=== PATIENT | female | born 1945 | race Hispanic/Latino ===

== ENCOUNTER → 2020-02-12 | Outpatient (CLI) | payer OTHER | END | disposition home or self-care (01) | LOC: RAH 10:47 | PROVIDERS: ATTEND Internal Medicine Gastroenterology | DX: R10.10 Upper abdominal pain, unspecified (principal); R14.0 Abdominal distension (gaseous); R68.81 Early satiety | CPT/HCPCS: 78264; A9541 ==

== ENCOUNTER 2022-06-05 13:27 | Emergency (ER) | payer OTHER ==
[~2022-06-05] VITALS: Ht 154.9 cm; Wt 80.3 kg
[2022-06-05 13:49] LABS: BASOPHILS % (AUTO) 0.6 % (0.0-5.0); EOSINOPHILS % (AUTO) 3.2 % (0.0-8.0); HEMATOCRIT 39.3 % (36-48); LYMPHOCYTES % (AUTO) 37.6 % (21.0-51.0); MEAN CORPUSCULAR HEMOGLOBIN 32.4 pg (27.0-33.0); MEAN CORPUSCULAR HGB CONC 35.9 g/dL (32.0-36.0); MEAN CORPUSCULAR VOLUME 90.3 fL (79-99); MONOCYTES % (AUTO) 9.5 % (3.0-13.0); NEUTROPHILS % (AUTO) 48.8 % (40.0-77.0); PLATELET COUNT (AUTO) 338 K/uL (130-400); RED BLOOD CELL COUNT(AUTO) 4.35 MIL/uL (4.00-5.50); RED CELL DISTRIBUTION WIDTH 14.7 % (11.0-15.5); WHITE BLOOD COUNT (AUTO) 8.9 K/uL (4.8-10.8)
[2022-06-05 13:59] LABS: CREATININE 0.8 mg/dL (0.5-1.5); INR 0.95 (0.85-1.15); POTASSIUM 3.7 mmol/L (3.5-5.1); PROTHROMBIN TIME 10.4 SEC (9.6-11.6)
[2022-06-05 14:04] LABS: ALBUMIN 4.3 g/dL (3.5-5.0); TOTAL PROTEIN, SERUM 7.9 g/dL (6.0-8.3)
[2022-06-05 14:18] LABS: B-TYPE NATRIURETIC PEPTIDE 75 pg/mL (0-100)
[2022-06-05] MEDS ORDERED: HYDR50CA PO (15:10)
[2022-06-05] MEDS ORDERED: LISI10TA24 PO (15:10)
[2022-06-05] MEDS ORDERED: SIMV40TA59 PO (15:10)
[2022-06-05] MEDS ORDERED: LEVO125C4 PO (15:10)
[2022-06-05] MEDS ORDERED: AMLO5TAB5 PO (15:10)
[2022-06-05] MEDS ORDERED: ASPIRIN 325MG EC TAB PO ONE (16:00)
[2022-06-05] MEDS ORDERED: IOHEXOL 350 MG/ML 100ML INFUS..BTL IV ONE (16:28)
[2022-06-05 17:23] LABS: APPEARANCE,URINE CLEAR (CLEAR); BILIRUBIN,URINE NEGATIVE (NEGATIVE); COLOR,URINE LIGHT-YELLOW (YELLOW); GLUCOSE, URINE (UA) NEGATIVE (NEGATIVE); KETONES,URINE NEGATIVE (NEGATIVE); LEUKOCYTE ESTERASE ,URINE 25 Leu/uL (NEGATIVE); NITRATE,URINE NEGATIVE (NEGATIVE); OCCULT BLOOD,URINE NEGATIVE (NEGATIVE); PROTEIN,URINE NEGATIVE (NEGATIVE); UROBILINOGEN,URINE 0.2 mg/dL (0.2-1.0)
[2022-06-05 17:29] LABS: BACTERIA,URINE RARE /HPF (None Seen); MUCUS,URINE RARE LPF (None Seen); SQUAMOUS EPITHELIAL CELL,UR RARE /HPF (0-2)
[2022-06-05 19:26] VITALS: BP 132/84
[2022-06-05] MEDS ORDERED: DICL50TA9 PO (19:42)
[2022-06-05] MEDS ORDERED: MACR100 PO (19:59)
[2022-06-05] MEDS ORDERED: KETOROLAC 15MG/ML VIAL (15MG/ML) IV ONE (20:00)
== END 2022-06-05 20:11 | disposition home or self-care (01) ==
LOC: EDH 13:27
DX: H53.8 Other visual disturbances (principal); R51.9 Headache, unspecified; E11.9 Type 2 diabetes mellitus without complications; E78.00 Pure hypercholesterolemia, unspecified; I10 Essential (primary) hypertension; Z79.01 Long term (current) use of anticoagulants; Z79.82 Long term (current) use of aspirin; Z79.899 Other long term (current) drug therapy
CPT/HCPCS: 99285; 70496; 70551; 96374; 71045; 82550; 83721; 84484; 80053; 83880; 85025; 85610; 85730; 87088; 82948; 81001; 36415; 70498; 93005; 70450; J1885; Q9967

== ENCOUNTER 2023-02-14 07:56 | Emergency (ER) | payer OTHER ==
[~2023-02-14] VITALS: Ht 154.9 cm; Wt 80.3 kg
[~2023-02-14 07:56] MED LIST: AMLO5TAB5 PO; DICL50TA9 PO; HYDR50CA PO; LEVO125C4 PO; LISI10TA24 PO; MACR100 PO; SIMV40TA59 PO
[2023-02-14 08:29] LABS: BASOPHILS % (AUTO) 0.3 % (0.0-5.0); EOSINOPHILS % (AUTO) 1.1 % (0.0-8.0); HEMATOCRIT 42.4 % (36-48); LYMPHOCYTES % (AUTO) 19.2 % (21.0-51.0); MEAN CORPUSCULAR VOLUME 91.2 fL (79-99); MONOCYTES % (AUTO) 7.7 % (3.0-13.0); NEUTROPHILS % (AUTO) 71.3 % (40.0-77.0); PLATELET COUNT (AUTO) 391 K/uL (130-400); RED BLOOD CELL COUNT(AUTO) 4.65 MIL/uL (4.00-5.50); RED CELL DISTRIBUTION WIDTH 14.4 % (11.0-15.5); WHITE BLOOD COUNT (AUTO) 15.9 K/uL (4.8-10.8)
[2023-02-14 08:36] LABS: CREATININE 0.7 mg/dL (0.5-1.5); POTASSIUM 3.3 mmol/L (3.5-5.1)
[2023-02-14 08:40] LABS: TOTAL PROTEIN, SERUM 7.9 g/dL (6.0-8.3)
[2023-02-14] MEDS ORDERED: KETOROLAC 15MG/ML VIAL (15MG/ML) IV ONE (09:00)
[2023-02-14 09:13] LABS: APPEARANCE,URINE CLEAR (CLEAR); BILIRUBIN,URINE NEGATIVE (NEGATIVE); COLOR,URINE YELLOW (YELLOW); GLUCOSE, URINE (UA) NEGATIVE (NEGATIVE); KETONES,URINE NEGATIVE (NEGATIVE); LEUKOCYTE ESTERASE ,URINE 25 Leu/uL (NEGATIVE); NITRATE,URINE NEGATIVE (NEGATIVE); OCCULT BLOOD,URINE NEGATIVE (NEGATIVE); PROTEIN,URINE 30 mg/dL (NEGATIVE)
[2023-02-14 09:16] LABS: BACTERIA,URINE RARE /HPF (None Seen); MUCUS,URINE RARE LPF (None Seen); SQUAMOUS EPITHELIAL CELL,UR FEW /HPF (0-2)
[2023-02-14] MEDS ORDERED: IOHEXOL-350 75 ML VIAL IV ONE (09:36)
[2023-02-14] MEDS ORDERED: AMOX1TAB16 PO (12:23)
[2023-02-14] MEDS ORDERED: CEFTRIAXONE 1G VIAL IVPB ONE (12:30)
[2023-02-14 14:12] VITALS: BP 134/83
== END 2023-02-14 14:14 | disposition home or self-care (01) ==
LOC: EDH 07:56
DX: K52.9 Noninfective gastroenteritis and colitis, unspecified (principal); I10 Essential (primary) hypertension; E78.00 Pure hypercholesterolemia, unspecified; J45.909 Unspecified asthma, uncomplicated; Z79.899 Other long term (current) drug therapy; Z90.49 Acquired absence of other specified parts of digestive tract; Z90.89 Acquired absence of other organs; Z98.890 Other specified postprocedural states
CPT/HCPCS: 99285; 74177; 96374; 96375; 80053; 85025; 86850; 86900; 86901; 87088; 81001; 36415; J0696; J1885; Q9967

== ENCOUNTER 2024-12-05 22:31 | Emergency (ER) | payer OTHER ==
[~2024-12-05] VITALS: Ht 154.9 cm; Wt 77.1 kg
[~2024-12-05 22:31] MED LIST changes: +AMOX1TAB16 PO
[2024-12-06] MEDS: ketOROlac 15MG/ML VIAL (15MG/ML) IM ONE
[2024-12-06] MEDS: HYDROcodone/APAP 5/325 1 TAB TABLET PO ONE (00:01)
--- NOTE | 2024-12-06 00:02 | HMCIMG ---
US VENOUS DOPPLER UNILATERAL HISTORY: Right lower extremity pain COMPARISON: None TECHNIQUE: Right lower extremity venous Doppler ultrasound study was performed. FINDINGS: The right common femoral, femoral, popliteal, and posterior tibial veins are visualized. Normal flow with augmentation and compressibilities are demonstrated. Right greater saphenous vein is patent. IMPRESSION: 1. No evidence of deep venous thrombosis is seen.
--- NOTE | 2024-12-06 00:05 | ERN ---
General Chief Complaint: Knee Injury/Swelling Stated Complaint: RIGHT KNEE PAIN Time Seen by MD: 22:38 Time Seen by Midlevel: 22:38 Source: patient History of Present Illness Initial Comments The patient is a 79-year-old female presenting to the emergency department for evaluation of right knee pain. The patient states the pain started at 3:00 p.m. today. Denies any direct injury but does state she felt an excruciating pain after getting up from her chair. She was concerned she may have a blood clot so she decided to call EMS and report to the ER for further evaluation. Allergies: Coded Allergies: No Known Allergies (Unverified Allergy, Unknown, 06/05/22) Home Meds Active Scripts Amoxicillin/Potassium Clav (Amox Tr-K Clv 875-125 mg Tab) 1 Each Tablet, 1 EACH PO BID for 7 Days, #14 TAB Prov:QUE HATFIELD MD 02/14/23 Nitrofurantoin/Nitrofuran Mac (Macrobid) 100 Mg Cap, 1 CAP PO BID for 7 Days, #14 CAP 0 Refills Prov:CHRIS POP MD 06/05/22 Diclofenac Sodium (Diclofenac Sodium) 50 Mg Tablet.dr, 50 MG PO TIDP PRN for HEADACHE, #12 TAB 0 Refills Prov:CHRIS POP MD 06/05/22 Reported Medications Hydroxyzine Pamoate (Vistaril) 50 Mg Capsule, 50 MG PO DAILY, CAP 06/05/22 Levothyroxine Sodium (Levothyroxine) 125 Mcg Capsule, 125 MCG PO HS, CAP 06/05/22 Simvastatin (ZOCOR) 40 Mg Tablet, 40 MG PO HS, TAB 06/05/22 Amlodipine Besylate (Norvasc) 5 Mg Tablet, 5 MG PO DAILY, TAB 06/05/22 Lisinopril (Lisinopril) 10 Mg Tablet, 10 MG PO DAILY, TAB 06/05/22 Past Medical History Past Medical History: Arthritis, Asthma, Depression, Diabetes-Type II, High Cholesterol, Hypertension Past Surgical History: Tonsillectomy, Cholecystectomy, Family History Family History: CAD, HTN Social History Social History: Negative, Lives with family ROS Dictation CONSTITUTIONAL: Negative except for HPI HEAD/FACE: Negative except for HPI EENT: Negative except for HPI RESPIRATORY: Negative except for HPI GASTROINTESTINAL/ABDOMINAL: Negative except for HPI GENITOURINARY: Negative except for HPI MUSCULOSKELETAL: Negative except for HPI INTEGUMENTARY: Negative except for HPI NEUROLOGICAL/PSYCH: Negative except for HPI HEMATOLOGIC/LYMPHATIC: Negative except for HPI All Systems Negative, Except as noted above. 13 point review of systems assessed and all negative except for above. Physical Exam Physical Exam Dictation Vital Signs reviewed General Appearance: Alert, oriented x 3, no acute distress, well developed, nourished. Head and Face: non-traumatic. Eyes: PERRL, pink conjunctivas, eyelid no trauma, anterior chamber with arcus senilis. Ears: Pinnas intact and no signs of trauma or erythema ear canals clear and no discharge TM no erythema Nose: No discharge, no bleeding. Oropharynx: Mouth normal, tongue pink, pharynx clear,no erythema, tonsils no exudates, no abscesses noted, mucous membrane moist Neck: Supple, non-tender, no thyromegaly, no masses, no JVD, no bruits Breast:Deferred Chest:No tenderness, no crepitus, no paradoxical movement, no retractions Lungs:Clear, well-ventilated, symmetric, no rales, no wheezing, no rhonchi, no stridor, good breath sounds bilaterally Heart: Regular rate, regular rhythm, no murmur, no gallops Vascular: no peripheral edema, Abdomen: Soft, positive bowel sounds, nondistended, no guarding, nontender, no rebound, no masses no hepatomegaly, no splenomegaly, no Celestin's sign, no hernias. Rectal: Deferred Genital: Deferred Neurological: Normal speech, motor function intact, sensory function intact Musculoskeletal: Neck nontender, full range of motion, back nontender, full range of motion, Extremities: nontender, full range of motion Skin: Color pink, dry, no turgor, no rash, no lacerations, no abrasions, no contusions. Lymphatic: Deferred MDM MDM: The patient is a 79-year-old female presenting to the emergency department for evaluation of right knee pain. The patient states the pain started at 3:00 p.m. today. Denies any direct injury but does state she felt an excruciating pain after getting up from her chair. She was concerned she may have a blood clot so she decided to call EMS and report to the ER for further evaluation. On physical examination the patient was in no acute distress. There is restricted range motion of the right knee secondary to pain. Popliteal pulses intact. There is 2+ PT, DP pulses bilaterally. Sensation is intact. An x-ray of the right knee was obtained to rule out any acute fracture or dislocation. X-ray does not show any evidence of patellar dislocation, acute fracture, or dislocation. A Doppler ultrasound was obtained which does not reveal any evidence of a deep vein thrombosis. The patient was placed on a knee immobilizer and was given 15 mg of Toradol IM and a Rumney. Differential diagnosis: Internal knee injury, fracture, contusion There are no social concerns with this patient. Prescription drug management Prescriptions will include: None Medical management and examination interpretation discussions were had by me with other qualified healthcare professionals as indicated for the patient's care. ED Course Orders Procedure Category Date Status Time Hydrocodone/Apap PHA 12/05/24 Complete 5/325 (Rumney 5/325mg) 23:00 Ketorolac PHA 12/05/24 Complete Tromethamine 15mg/Ml 23:00 Knee 3vws Rt RAD 12/05/24 Resulted 22:58 Us Venous Doppler US 12/05/24 Resulted Unilateral 22:58 Current Medications Medications (Trade) Dose Ordered Sig/Ginny Route PRN Reason Start Time Stop Time Status Last Admin Dose Admin Acetaminophen/ Hydrocodone Bitart (NORco 5/325MG) 1 tab ONCE ONCE PO 12/05/24 23:00 12/05/24 23:04 DC 12/06/24 00:01 Ketorolac Tromethamine (toRADol) 15 mg ONCE ONCE IM 12/05/24 23:00 12/05/24 23:04 DC 12/06/24 00:00 Vital Signs Date Time Temp Pulse Resp B/P (MAP) Pulse Ox O2 Delivery O2 Flow Rate FiO2 12/05/24 23:21 98.1 78 17 153/72 94 Room Air* 0 21 12/05/24 22:33 98.1 79 16 146/97 96 Room Air 0 DX & DISP Disposition: Discharge Departure Impression: Primary Impression: Right knee pain Condition: Stable Additional Instructions: Your right knee x-ray does not show any evidence of an acute fracture or dislocation. Your right lower extremity ultrasound does not show any evidence of a blood clot. You will need to follow up with an flow specialist for further evaluation. You may take Tylenol and Motrin as needed for pain. Referrals: DAMEON COOK MD (PCP) BERNARDINO OVIEDO MD Time of Disposition: 00:14 I have reviewed the case, and I agree with, Diagnosis and Plan I performed the substantive portion of the visit. I have reviewed and personally made and approve the management plan that is documented in the note by myself or the MAUREEN. I acknowledge for responsibility for the patient's management plan. ZAYRA VICTOR Dec 06, 2024 00:05
--- NOTE | 2024-12-06 00:05 | HMCIMG ---
KNEE 3VWS RT HISTORY: Right knee pain COMPARISON: None TECHNIQUE: 3 images of right knee were obtained. FINDINGS: There is no acute displaced fracture or dislocation. Chondrocalcinosis changes are seen. Vascular calcifications are seen. Degenerative changes are seen. IMPRESSION: 1. Findings as described above.
--- NOTE | 2024-12-06 00:33 | NUR ---
PT PLACED IN RIGHT KNEE IMOBILIZER
--- NOTE | 2024-12-06 00:34 | NUR ---
PT GIVEN A LIST OF TAXI NUMBERS AT THIS TIME
--- NOTE | 2024-12-06 00:58 | NUR ---
PATIENT UNABLE TO OBTAIN RIDE HOME FROM FAMILY OR FRIENDS. HOUSE SUPERIVOR NOTIFIED. LIFT CALLED.
[2024-12-06] MEDS ORDERED: PRED20TA3 PO (01:07)
[2024-12-06 01:20] VITALS: BP 145/71; PULSE 78; RESP 15; TEMP 98.5; O2SAT 94
--- NOTE | 2024-12-06 01:20 | NUR ---
CRUTCHES GIVEN TO PT AT THIS TIME
== END 2024-12-06 01:30 | disposition home or self-care (01) ==
LOC: EDH 22:31
DX: M25.561 Pain in right knee (principal); E11.9 Type 2 diabetes mellitus without complications; E78.00 Pure hypercholesterolemia, unspecified; I10 Essential (primary) hypertension; J45.909 Unspecified asthma, uncomplicated; M19.90 Unspecified osteoarthritis, unspecified site; Z79.890 Hormone replacement therapy; Z79.899 Other long term (current) drug therapy; Z90.49 Acquired absence of other specified parts of digestive tract; Z90.89 Acquired absence of other organs; M79.661 Pain in right lower leg
CPT/HCPCS: 99285; 29505; 93971; 73562; 96372; J1885